=== PATIENT | female | born 1960 | race Caucasian/White ===

== ENCOUNTER 2020-03-19 22:17 | Outpatient (REF) | payer MEDICAID, SELFPAY ==
[2020-03-19 21:35] LABS: HCT 40.4 % (36.0-46.0); HGB 13.4 g/dL (12.0-15.5); Mean Corp. HGB Concentration 33.2 g/dL (32.0-36.0); Mean Corpuscular Hemoglobin 30.8 pg (27.0-33.0); Mean Corpuscular Volume 92.9 fL (80-95); Mean Platelet Volume 11.9 fL (8.0-11.0); Platelet Count 334 x1000/uL (130-400); RBC 4.35 m/cumm (4.00-5.20); RBC Distribution Width 13.2 % (11.7-14.6); White Blood Cell Count 5.09 k/cumm (4.4-10.8)
[2020-03-19 22:04] LABS: ALT 20 U/L (14-59); AST 14 U/L (15-37); Albumin 3.6 g/dL (3.4-5.0); Alkaline Phosphatase 49 U/L (46-116); Anion Gap 6.2 mmol/L (3-11); BUN 15 mg/dL (7-18); Bilirubin, Total 0.2 mg/dL (0.2-1.0); CO2 28.8 mmol/L (21.0-32.0); CREATININE 0.93 mg/dL (0.55-1.02); Calculated LDL 168 mg/dL (<100); Chloride 105 mmol/L (98-107); Cholesterol 259 mg/dL (<200); Glucose 84 mg/dL (74-106); HDL Cholesterol 78 mg/dL (40-60); Potassium 4.3 mmol/L (3.5-5.1); Sodium 140 mmol/L (136-145); Total Protein 6.7 g/dL (6.4-8.2); Triglyceride 65 mg/dL (<150)
[2020-03-20 04:52] LABS: Vitamin D 25 Total 29.3 ng/ml (30-100)
== END 2020-03-19 22:37 ==
LOC: NCHCN 22:17
PROVIDERS: PCP Nurse Practitioner Family; Visit Provider Nurse Practitioner Community Health
DX: E04.9 Nontoxic goiter, unspecified (principal); F41.0 Panic disorder [episodic paroxysmal anxiety]; F32.9 Major depressive disorder, single episode, unspecified; E78.5 Hyperlipidemia, unspecified; K21.9 Gastro-esophageal reflux disease without esophagitis
CPT/HCPCS: 80053; 80061; 82306; 85027; 84443

== ENCOUNTER 2020-06-11 16:31 | Outpatient (REF) | payer MEDICAID, SELFPAY ==
[2020-06-14 08:47] LABS: Patient Race White; SARS-CoV-2 RNA Undetected (Undetected); SARS-CoV-2 Specimen Source Nasopharynx
== END 2020-06-11 16:51 ==
LOC: NCHCN 16:31
PROVIDERS: PCP Nurse Practitioner Family; Visit Provider Nurse Practitioner Family
DX: Z20.828 Contact with and (suspected) exposure to other viral communicable diseases (principal)
CPT/HCPCS: U0003

== ENCOUNTER 2020-11-12 11:32 | Outpatient (REF) | payer MEDICAID, SELFPAY ==
--- NOTE | 2020-11-12 11:00 | PAPFT_PTH ---
PATIENT: DOMITILA PARRISH LOC: [facility]#:[id number] AGE/SX: 59/F ROOM: RE11/12/[address]: Ayesha Armenta : 1960 BED: DIS: 11/12/2020 SPEC #: [id number] RECD: 11/12/20 12:53 STATUS: SRAAH REQ #: [id number] RENETTA: 11/12/20 11:[address]: Ayesha Armenta DEPT: [facility] Cytology RECD BY: Niru Selby ENTERED: 11/12/20 12:53 SP TYPE: PAPFT OTHR DR: Karlie Ontiveros Tissues: 1 - CX/ENDOCX FOR PAP SMEARS Procedures: PAP THIN PREP/[facility] Screening HPV DNA PROBE Comments: [id number]
== END 2020-11-12 11:33 | disposition home or self-care (01) ==
LOC: NCHCN 11:32
PROVIDERS: PCP Nurse Practitioner Family; Visit Provider Nurse Practitioner Community Health
DX: Z12.4 Encounter for screening for malignant neoplasm of cervix (principal); Z11.51 Encounter for screening for human papillomavirus (HPV)
CPT/HCPCS: 88142; 87624